=== PATIENT | female | born 1970 | race Caucasian/White ===

== ENCOUNTER 2024-02-12 03:21 | Day surgery (SDC) | payer OTHER, SELFPAY ==
[2024-01-28 14:11] VITALS: BMI 24.0
[2024-02-12 07:26] VITALS: BP 109/66; PULSE 75; RESP 16; TEMP 35.7; O2SAT 100; BMI 23.8
[2024-02-12] MEDS: LACTATED RINGERS 1,000 ML 150 ML IV CONT (07:54)
[2024-02-12 07:55] LABS: Glucose Point of Care 93 mg/dl (65-105)
--- NOTE | 2024-02-12 07:56 | P.PNAN_ITS ---
Anes - Initial Pre Proc Eval Procedure: Operation Date: 02/12/24 08:30 Proposed Procedures p Screening Colonoscopy - Saúl Sylvester MD Date/Time: 02/12/24 07:56 Surgeon: Saúl Sylvester MD Pre Op Diagnosis: Hx Polyps Patient Data Age: 53 Gender: F Height: 1.75 m Weight: 73.1 kg Last Vital Signs Temp 35.7 C L 02/12/24 07:26 Pulse 75 02/12/24 07:26 Resp 16 02/12/24 07:26 BP 109/66 02/12/24 07:26 Pulse Ox 100 02/12/24 07:26 O2 Del Method Room Air 02/12/24 07:26 Allergies Allergy/AdvReac Type Severity Reaction Status Date / Time No Known Allergies Allergy Verified 02/12/24 07:34 Home Medications Medication Instructions Recorded Confirmed Type cholecalciferol (vitamin D3) 125 5,000 unit PO DAILY 02/26/19 02/12/24 History mcg (5,000 unit) capsule lisinopril 5 mg tablet 5 mg PO DAILY 02/26/19 02/12/24 History metformin 500 mg tablet 500 mg PO DAILY 02/26/19 02/12/24 History montelukast 10 mg tablet 10 mg PO DAILY 02/26/19 02/12/24 History (Singulair) rosuvastatin 10 mg tablet 10 mg PO DAILY 01/28/24 02/12/24 History tirzepatide 10 mg/0.5 mL 10 mg subcut DIRECTED 01/28/24 02/12/24 History subcutaneous pen injector (Mounjaro) Laboratory Tests 02/12/24 07:41 POC Capillary Glucose 93 mg/dl (65-105) Patient hx anesthesia problems: none Family hx anesthesia problems: none Results Review: All pre-operative results and documents have been reviewed as part of the pre- operative evaluation. [facility] Past Medical History Medical History Hypertension Surgical History Surgical History History of cholecystectomy Social History Social History Smoking status: Former smoker Tobacco type: cigarettes Additional smoking assessment comments: 1 ppw Alcohol intake: current Drinks per week: 5 Living arrangements: with family Spiritual care concerns: No Anes - Eval Final PreProcedure Day of Procedure 02/12/24 07:56 Patient weight: normal Heart: regular rate and rhythm Lungs: clear to auscultation Airway: Mallampati scale class II Neurological: alert and oriented Last oral intake: >/= 8 hours ASA classification: II Emergent: no Anesthetic plan: proceed Anesthesia type and monitoring: general GIVS and standard monitoring Results Review: All pre-operative results and documents have been reviewed as part of the pre- operative evaluation. Informed Consent: The patient's anesthetic plan and its attendant risks and benefits were discussed with the patient/family/POA. Questions were solicited and answers provided to the satisfaction of the patient/family/POA.
--- NOTE | 2024-02-12 09:06 | PM.IMHP ---
H&P: HPI History of Present Illness Date/Time: 02/12/24 09:06 Chief Complaint: History of colonic polyps. Narrative: The patient has a history of colonic polyps, the last colonoscopy was 4 years ago. Review of Systems Review of Systems: All systems reviewed & are unremarkable except as noted in HPI and below PMFSH Past Medical History Medical History Hypertension Surgical History Surgical History History of cholecystectomy Social History Social History Smoking status: Former smoker Tobacco type: cigarettes Additional smoking assessment comments: 1 ppw Alcohol intake: current Drinks per week: 5 Living arrangements: with family Spiritual care concerns: No Meds Home Medications and Allergies Home Medications Medication Instructions Recorded Confirmed Type cholecalciferol (vitamin D3) 125 5,000 unit PO DAILY 02/26/19 02/12/24 History mcg (5,000 unit) capsule lisinopril 5 mg tablet 5 mg PO DAILY 02/26/19 02/12/24 History metformin 500 mg tablet 500 mg PO DAILY 02/26/19 02/12/24 History montelukast 10 mg tablet 10 mg PO DAILY 02/26/19 02/12/24 History (Singulair) rosuvastatin 10 mg tablet 10 mg PO DAILY 01/28/24 02/12/24 History tirzepatide 10 mg/0.5 mL 10 mg subcut DIRECTED 01/28/24 02/12/24 History subcutaneous pen injector (Mounjaro) Allergies Allergy/AdvReac Type Severity Reaction Status Date / Time No Known Allergies Allergy Verified 02/12/24 07:34 Vital Signs Vital Signs - 24 hr 02/12/24 07:26 Temperature 96.3 F L Pulse Rate 75 Respiratory Rate 16 Blood Pressure 109/66 Pulse Oximetry 100 Oxygen Delivery Room Air Assessment and Plan Assessment and plan (1) History of colonic polyps: Code(s): Z86.0100 - Personal history of colon polyps, unspecified Status: Acute Assessment and Plan: The patient is deemed a good candidate for the procedure. Consent signed. Will proceed.
[2024-02-12 09:27] VITALS: BP 152/65; PULSE 66; RESP 22; O2SAT 97
[2024-02-12 09:37] VITALS: BP 101/70; PULSE 62; RESP 20; O2SAT 100
[2024-02-12 09:47] VITALS: BP 121/67; PULSE 61; RESP 18; O2SAT 100
== END 2024-02-12 09:55 | disposition home or self-care (01) ==
PROVIDERS: PCP Physician Assistant; Visit Provider Internal Medicine Gastroenterology
PROC: 0DJD8ZZ Inspection of Lower Intestinal Tract, Via Natural or Artificial Opening Endoscopic (ICD-10-PCS; CPT 45378; principal; 2024-02-12 08:30)
DX: Z12.11 Encounter for screening for malignant neoplasm of colon (principal); K64.8 Other hemorrhoids; I10 Essential (primary) hypertension; Z79.84 Long term (current) use of oral hypoglycemic drugs; Z79.85 Long-term (current) use of injectable non-insulin antidiabetic drugs; Z98.890 Other specified postprocedural states; Z90.49 Acquired absence of other specified parts of digestive tract; Z86.0100 Personal history of colon polyps, unspecified; Z87.891 Personal history of nicotine dependence
CPT/HCPCS: 45378; 82948; J2003; J2704; J7120